=== PATIENT | female | born 1995 | race Two or more races ===

== ENCOUNTER 2018-06-27 11:39 | Emergency (ER) | payer OTHER ==
[~2018-06-27] VITALS: Ht 165.1 cm; Wt 80.9 kg
[2018-06-27] MEDS ORDERED: FAMOTIDINE INJ 20MG/2ML VIAL (S0028) IV ONE (12:45)
[2018-06-27] MEDS ORDERED: FAMOTIDINE/NS 20 MG/50 ML BAG (S0028) As Ordered ONE (12:52)
[2018-06-27] MEDS ORDERED: FAMOTIDINE IV BAG 20 MG in APPROPRIATE DILUENT 1 EA IV ONE (13:00)
[2018-06-27 15:02] VITALS: BP 115/66
[2018-06-27] MEDS ORDERED: EPIP0.3I2 IM (15:03)
[2018-06-27] MEDS ORDERED: PEPC1TAB5 PO (15:03)
[2018-06-27] MEDS ORDERED: MEDR4PAK PO (15:03)
== END 2018-06-27 15:16 | disposition home or self-care (01) ==
LOC: EDBD 11:39 → M ED 11:39
DX: T78.40XA Allergy, unspecified, initial encounter (principal); R22.0 Localized swelling, mass and lump, head; X58.XXXA Exposure to other specified factors, initial encounter; Y92.89 Other specified places as the place of occurrence of the external cause; D68.0 Von Willebrand disease
CPT/HCPCS: 96365; 96366; 96372; 99284; G0463; J2930